=== PATIENT | male | born 1960 | race Caucasian/White ===

== ENCOUNTER → 2022-08-22 | Outpatient (CLI) | payer MEDICARE | END | disposition home or self-care (01) | LOC: RAH 10:32 | PROVIDERS: ATTEND Internal Medicine Critical Care Medicine | DX: Z01.818 Encounter for other preprocedural examination (principal); M47.815 Spondylosis without myelopathy or radiculopathy, thoracolumbar region | CPT/HCPCS: 71046 ==

== ENCOUNTER 2022-12-16 05:36 | Inpatient (IN) | payer BC, MEDICARE ==
[2022-12-10 11:48] LABS: BASOPHILS % (AUTO) 0.7 % (0.0-5.0); EOSINOPHILS % (AUTO) 2.9 % (0.0-8.0); HEMATOCRIT 39.4 % (42-54); LYMPHOCYTES % (AUTO) 13.9 % (21.0-51.0); MEAN CORPUSCULAR HEMOGLOBIN 30.2 pg (27.0-33.0); MEAN CORPUSCULAR HGB CONC 34.8 g/dL (32.0-36.0); MONOCYTES % (AUTO) 7.6 % (3.0-13.0); NEUTROPHILS % (AUTO) 74.7 % (40.0-77.0); PLATELET COUNT (AUTO) 262 K/uL (130-400); RED BLOOD CELL COUNT(AUTO) 4.53 MIL/uL (4.50-6.20); RED CELL DISTRIBUTION WIDTH 13.4 % (11.0-15.5); WHITE BLOOD COUNT (AUTO) 8.7 K/uL (4.8-10.8)
[2022-12-10 11:55] LABS: CREATININE 1.1 mg/dL (0.5-1.5); POTASSIUM 4.9 mmol/L (3.5-5.1)
[2022-12-10 11:58] LABS: INR 0.96 (0.85-1.15); PROTHROMBIN TIME 10.5 SEC (9.6-11.6)
[2022-12-10 11:59] LABS: PARTIAL THROMBOPLASTIN TIME 27.9 SEC (26.3-35.5)
[2022-12-10 12:25] VITALS: BP 134/81
[~2022-12-16] VITALS: Ht 172.7 cm; Wt 90.7 kg
[2022-12-16] VITALS (26 sets, daily range): BP systolic 61–137; BP diastolic 36–82
[~2022-12-16 05:36] MED LIST: ACET-2743 PO; COQ10 PO; EZET10TA48 PO; HYDR25TA PO; IBUP-2784 PO; LISI20TA24 PO; MVIT PO; ROSU20TA31 PO; SILD50TA PO; TRAM50TA4 PO; TURMERIC PO
[2022-12-16] MEDS ORDERED: LACTATED RINGERS 1000ML 1,000 ML IV ONE (06:35)
[2022-12-16] MEDS: CEFAZOLIN SODIUM 2 GM VIAL ONE ×2 (07:00→10:32)
[2022-12-16] MEDS ORDERED: GLYCOPYRROLATE 1 MG/5 ML SYRINGE ONE (08:00)
[2022-12-16] MEDS ORDERED: LIDOCAINE PF 100MG/5ML (2%) SYRINGE 5ML ONE (08:00)
[2022-12-16] MEDS ORDERED: ROCURONIUM 10MG/1ML SYR 10 MG/ML ML ONE ×2 (08:01→11:07)
[2022-12-16] MEDS ORDERED: FENTANYL CITRATE PF 50 MCG/1 ML 2ML VIAL ONE ×3 (08:01→14:56)
[2022-12-16] MEDS ORDERED: PROPOFOL 10 MG/ML 20ML VIAL IV ONE (08:01)
[2022-12-16] MEDS ORDERED: PHENYLEPHRINE HCL 10 MG/ML 1ML VIAL IV ONE (08:05)
[2022-12-16] MEDS ORDERED: ROPIVACAINE 0.5% 5MG/ML 30ML IJ ONE (08:12)
[2022-12-16] MEDS ORDERED: TRANEXAMIC ACID 1000MG/10ML ONE (08:40)
[2022-12-16] MEDS ORDERED: EPHEDRINE SULFATE 50 MG/ML AMPULE ONE ×2 (10:35→14:21)
[2022-12-16] MEDS ORDERED: ONDANSETRON 4MG INJ ONE (11:00)
[2022-12-16] MEDS ORDERED: MIDAZOLAM HCL 1 MG/ML 2ML VIAL ONE (11:08)
[2022-12-16] MEDS ORDERED: NEOSTIGMINE 5MG/5ML SYR IV ONE (13:37)
[2022-12-16] MEDS ORDERED: MEPERIDINE-PF 25 MG/ML SYG ONE (13:52)
[2022-12-16] MEDS ORDERED: POTASSIUM CHLORIDE 20MEQ/100ML 100 ML IV PRN (14:00)
[2022-12-16] MEDS ORDERED: KCL 20 MEQ ERTAB PO PRN (14:00)
[2022-12-16] MEDS: 0.9%NACL 1000ML 1,000 ML IV SCH (14:00)
[2022-12-16] MEDS ORDERED: ONDANSETRON 4MG INJ IVP PRN (14:00)
[2022-12-16] MEDS ORDERED: POTASSIUM CHLORIDE 10% ELIXIR 20 MEQ/15 ML UDCUP PO PRN (14:00)
[2022-12-16] MEDS: ACETAMINOPHEN 1,000 MG/100 ML VIAL IV SCH ×2 (14:44→19:51)
[2022-12-16] MEDS: IBUPROFEN 800MG + NS 250ML IV SCH (16:38)
[2022-12-16] MEDS: HYDROCODONE/ACETAMINOPHEN 10/325 MG TAB PO PRN (16:57)
[2022-12-16] MEDS: CEFAZOLIN SODIUM 2 GM VIAL IVPB SCH (17:52)
[2022-12-16] MEDS: LISINOPRIL 20 MG TABLET PO SCH (19:51)
[2022-12-16] MEDS: EZETIMIBE 10 MG TAB PO SCH (19:51)
[2022-12-16] MEDS: FAMOTIDINE 20MG TAB PO SCH (19:51)
[2022-12-17] VITALS (7 sets, daily range): BP systolic 83–116; BP diastolic 44–69
[2022-12-17] MEDS: IBUPROFEN 800MG + NS 250ML IV SCH ×2 (01:23→08:38)
[2022-12-17] MEDS: ACETAMINOPHEN 1,000 MG/100 ML VIAL IV SCH (02:32)
[2022-12-17] MEDS: CEFAZOLIN SODIUM 2 GM VIAL IVPB SCH (02:32)
[2022-12-17 05:32] LABS: HEMATOCRIT 26.1 % (42-54); MEAN CORPUSCULAR HEMOGLOBIN 30.3 pg (27.0-33.0); MEAN CORPUSCULAR HGB CONC 33.7 g/dL (32.0-36.0); RED BLOOD CELL COUNT(AUTO) 2.9 MIL/uL (4.50-6.20); RED CELL DISTRIBUTION WIDTH 13.9 % (11.0-15.5); WHITE BLOOD COUNT (AUTO) 12.8 K/uL (4.8-10.8)
[2022-12-17 05:40] LABS: CREATININE 1.3 mg/dL (0.5-1.5); POTASSIUM 4.3 mmol/L (3.5-5.1)
[2022-12-17] MEDS: HYDROCODONE/ACETAMINOPHEN 10/325 MG TAB PO PRN (05:44)
[2022-12-17] MEDS: FAMOTIDINE 20MG TAB PO SCH ×2 (08:38→20:42)
[2022-12-17] MEDS: FERROUS FUMARATE 324 MG TABLET PO SCH ×2 (08:39→20:42)
[2022-12-17] MEDS: POLYETHYLENE GLYCOL 3350 17 GM POWD.PACK PO SCH (08:39)
[2022-12-17] MEDS: ENOXAPARIN SODIUM 30 MG/0.3 ML SQ SCH (08:39)
[2022-12-17] MEDS: LISINOPRIL 20 MG TABLET PO SCH ×2 (09:00→20:42)
[2022-12-17] MEDS: HYDROCHLOROTHIAZIDE 25 MG TABLET PO SCH (09:00)
[2022-12-17] MEDS: 0.9%NACL 1000ML 1,000 ML IV SCH ×2 (10:00)
[2022-12-17] MEDS: HYDROCODONE/ACETAMINOPHEN 5/325 MG TAB PO PRN ×2 (15:07→18:34)
[2022-12-17] MEDS: EZETIMIBE 10 MG TAB PO SCH (20:42)
[2022-12-18] VITALS: BP 116/63
[2022-12-18] MEDS: HYDROCODONE/ACETAMINOPHEN 5/325 MG TAB PO PRN (00:25)
[2022-12-18 04:00] VITALS: BP 116/71
[2022-12-18] MEDS: MORPHINE 4 MG SYG IVP PRN ×2 (07:57→15:40)
[2022-12-18] MEDS: ENOXAPARIN SODIUM 30 MG/0.3 ML SQ SCH (07:58)
[2022-12-18] MEDS: FAMOTIDINE 20MG TAB PO SCH ×2 (07:58→20:07)
[2022-12-18] MEDS: POLYETHYLENE GLYCOL 3350 17 GM POWD.PACK PO SCH (07:59)
[2022-12-18 08:00] VITALS: BP 90/57
[2022-12-18] MEDS: FERROUS FUMARATE 324 MG TABLET PO SCH ×2 (08:03→20:07)
[2022-12-18] MEDS: HYDROCHLOROTHIAZIDE 25 MG TABLET PO SCH (08:08)
[2022-12-18] MEDS: LISINOPRIL 20 MG TABLET PO SCH (08:08)
[2022-12-18 10:11] LABS: HEMATOCRIT 22.4 % (42-54)
[2022-12-18 12:12] VITALS: BP 107/66
[2022-12-18 16:00] VITALS: BP 114/66
[2022-12-18] MEDS ORDERED: ACETAMINOPHEN 500 MG TABLET PO PRN (16:30)
[2022-12-18 20:00] VITALS: BP 108/66
[2022-12-18] MEDS: EZETIMIBE 10 MG TAB PO SCH (20:07)
[2022-12-19] VITALS: BP 112/69
[2022-12-19 04:00] VITALS: BP 120/70
[2022-12-19] MEDS: HYDROCODONE/ACETAMINOPHEN 5/325 MG TAB PO PRN (06:22)
[2022-12-19 08:00] VITALS: BP 101/62
[2022-12-19] MEDS: HYDROCHLOROTHIAZIDE 25 MG TABLET PO SCH (09:00)
[2022-12-19] MEDS: POLYETHYLENE GLYCOL 3350 17 GM POWD.PACK PO SCH (09:06)
[2022-12-19] MEDS: ENOXAPARIN SODIUM 30 MG/0.3 ML SQ SCH (09:07)
[2022-12-19] MEDS: FAMOTIDINE 20MG TAB PO SCH (09:07)
[2022-12-19] MEDS: FERROUS FUMARATE 324 MG TABLET PO SCH (09:08)
[2022-12-19 12:00] VITALS: BP 119/76
[2022-12-19] MEDS: HYDROCODONE/ACETAMINOPHEN 10/325 MG TAB PO PRN (12:43)
[2022-12-19] MEDS ORDERED: BISACODYL 10 MG SUPP.RECT RC PRN (14:00)
== END 2022-12-19 16:35 | DRG 470 ==
LOC: DAH 05:36 → DAHIP 05:37 → OBSVTOIN 05:37 → DAH 05:37 → 4DH 15:02
PROVIDERS: ADMIT Orthopaedic Surgery; ATTEND Orthopaedic Surgery
PROC: 0SR904Z Replacement of Right Hip Joint with Ceramic on Polyethylene Synthetic Substitute, Open Approach (ICD-10-PCS; principal; 2022-12-16 10:50)
DX: M16.11 Unilateral primary osteoarthritis, right hip (principal); D62 Acute posthemorrhagic anemia; I95.1 Orthostatic hypotension
CPT/HCPCS: 36415; 72170; 73503; 80048; 85014; 85018; 85025; 85027; 85610; 85730; 87426; 87641; 93005; 97039; G0378; J1650; J1741; J2001; J2175; J2250; J2270; J2370; J2405; J2704; J2710; J2795; J3010; J3490; J7120

== ENCOUNTER → 2024-02-02 | Outpatient (CLI) | payer BC ==
[~2024-02-02] MED LIST changes: -ACET-2743 PO; -COQ10 PO; -LISI20TA24 PO; -ROSU20TA31 PO; +ROSU20TA73 PO; -SILD50TA PO; -TURMERIC PO
== END | disposition home or self-care (01) ==
LOC: RAH 09:57
PROVIDERS: ATTEND Physician Assistant Medical
DX: M19.011 Primary osteoarthritis, right shoulder (principal); M25.711 Osteophyte, right shoulder; M25.511 Pain in right shoulder
CPT/HCPCS: 73030

== ENCOUNTER → 2024-03-18 | Outpatient (CLI) | payer BC | END | disposition home or self-care (01) | LOC: RAH 13:23 | PROVIDERS: ATTEND Orthopaedic Surgery | DX: M75.111 Incomplete rotator cuff tear or rupture of right shoulder, not specified as traumatic (principal); M19.011 Primary osteoarthritis, right shoulder; M25.511 Pain in right shoulder | CPT/HCPCS: 73221 ==

== ENCOUNTER → 2024-05-03 | Outpatient (CLI) | payer BC | END | disposition home or self-care (01) | LOC: RAH 12:10 | PROVIDERS: ATTEND Orthopaedic Surgery | DX: M47.22 Other spondylosis with radiculopathy, cervical region (principal); M48.02 Spinal stenosis, cervical region | CPT/HCPCS: 72141 ==